=== PATIENT | male | born 1960 | race Caucasian/White ===

== ENCOUNTER 2024-06-16 15:05 | Emergency (ER) | payer MEDICARE, OTHER, SELFPAY ==
[2024-06-16 15:23] VITALS: BP 111/63
--- NOTE | 2024-06-16 16:31 | ED.GENMED ---
History of Present Illness
General
Chief Complaint: Back Pain
Time Seen by Provider: 06/16/24 16:20
History of Present Illness
History of Present Illness:
63-year-old male with no significant past medical history presents to the emergency department for evaluation of sudden onset right flank pain that began while driving today. States the pain is not comparable to past degenerative disc disease
related pain. Had no radiation of symptoms into the legs. The pain was severe at onset involving sweating as well as chills, did not radiate at that time. It is since subsided currently rated 3 out of 10. Did not take any medication prior to
arrival. No history of similar complaint. Denies any fevers, vomiting, dysuria, or hematuria
Review of Systems
Review of Systems
Allergies reviewed?: Yes
All Other Systems: ROS reviewed and negative except as documented in HPI and ROS
Phy Exam
Physical Exam
Physical Exam:
GEN: Well appearing, NAD, WDWN
HEENT: Oral mucosa moist, no scleral icterus
Cardiac: Regular rate
Lung: No respiratory distress, no tachypnea
MSK: No gross deformity or injuries. Tenderness reproduced minimally to the right paraspinous lumbar musculature, there is associated right CVA tenderness, no midline bony spinous process tenderness to the L-spine
Skin: Good color, no pallor or jaundice, no rashes
Neuro: AO x3, moves all extremities freely
Psych: Calm, cooperative
Course
Orders/Labs/Results
Orders:
Orders
06/16/24 16:31
CT Abd/pel Without Iv Or Oral Urgent
Comment:
Reason For Exam: R flank pain
Ibuprofen [Motrin] 600 mg PO NOW STA
06/16/24 17:05
Urinalysis Reflex To Culture Urgent
Date Specimen was Collected: 06/16/24
Time Specimen was Collected: 16:57
Urine Microscopic Reflex Cult Urgent
06/16/24 18:56
Tamsulosin [Flomax] 0.4 mg PO NOW STA
Abnormal Lab Results
06/16/24
17:05
Urine Ketones Trace A
(Negative)
Ur Occult Blood Reflex 2+ A
(Negative)
Leukocyte Esterase Rfl Trace A
(Negative)
Urine RBC 50-60 A /HPF
(0-2)
Urine Bacteria (Reflex) Few A
(Negative)
Vital Signs
Initial and Last Documented VS:
Initial Vital Signs
Temp Pulse Resp BP Pulse Ox
98.6 F 106 18 111/63 100
06/16/24 15:23 06/16/24 15:23 06/16/24 15:23 06/16/24 15:23 06/16/24 15:23
Last Documented Vital Signs
Temp Pulse Resp BP Pulse Ox
98.6 F 102 16 122/72 97
06/16/24 15:23 06/16/24 19:11 06/16/24 19:11 06/16/24 19:11 06/16/24 19:11
MDM/Problems Addressed
MDM/Problems Addressed:
Patient identified to have a 5 mm proximal right ureteral stone. Pain well-controlled after ibuprofen. No fever and urinalysis is bland, do not feel that labs would exchange engineer at this point. Discussed supportive care and return parameters
*Critical Care Note
Total Time (30-74mins, 75-104mins- exclusive of procedures): Not Applicable
ED Attending Note
-
Portions of this chart may have been created with voice recognition software.� Occasional wrong word or��sound alike� substitutions may have occurred due to the inherent limitations of voice recognition software.
Discharge Plan
Departure
Patient Disposition: Home (Routine Discharge)
Date of Disposition: 06/16/24
Time of Disposition: 18:56
Patient with high blood pressure during this ER visit?: No
Discharge Problem:
Ureterolithiasis
Instructions: Kidney Stone, Adult ED
Prescriptions:
New
tamsulosin [Flomax] 0.4 mg capsule
0.4 mg PO HS Qty: 10 0RF
oxycodone-acetaminophen [Percocet] 5-325 mg tablet
1 tab PO Q6HPRN PRN (Reason: pain) Qty: 10 0RF
meloxicam 15 mg tablet
15 mg PO DAILY Qty: 10 0RF
No Action
hydrocodone-acetaminophen 1 TABLET tablet
1 - 2 tab PO Q4HPRN PRN (Reason: moderate to severe pain) Qty: 15 0RF
Referrals:
Sarah Beth Barone DO [Family Provider] -
Tariq Reynoso MD [Active] -
Activity Restrictions/Additional Instructions:
Strain your urine until the stone passes
Take the medications as prescribed; if your pain is not controlled with medications, OR if you develop a fever, return to the ER immediately
If you have not passed the stone within 5 days, follow up with urology
Do not take additional ibuprofen/naproxen with the medication I have prescribed, however you can take Tylenol
Interventions
Interventions:
*Risk Screen - Suicide Last Done: 06/16/24 15:23
*General Assessment Last Done: 06/16/24 15:23
*Neglect/Abuse Screening Last Done: 06/16/24 15:23
ED- Fall Risk Assessment Last Done: 06/16/24 19:15
*ED COVID-19 Vaccine History Last Done: 06/16/24 15:23
*Nursing Disposition Last Done: 06/16/24 19:15
ED-Musculoskeletal Assessment Last Done: 06/16/24 16:12
Discharge Date and Time
Discharge Date/Time: 06/16/24 19:15
Print Language: [id number]
[2024-06-16] MEDS: MOTRIN 600 MG PO (16:54)
[2024-06-16 17:11] LABS: Urine Albumin Trace (Neg - Trace); Urine Bilirubin Negative (Negative); Urine Character Clear (Clear); Urine Color Yellow; Urine Glucose Negative (Negative); Urine Ketone Trace (Negative); Urine Leukocyte Trace (Negative); Urine Nitrite Negative (Negative); Urine Occult Blood 2+ (Negative); Urine Urobilinogen Negative (Neg - 1+)
[2024-06-16 17:17] LABS: Urine Mucus Few; Urine Squamous Cell 0-2 /LPF (Few)
[2024-06-16 17:19] LABS: Urine Bacteria Few (Negative); Urine Red Blood Cell 50-60 /HPF (0-2)
[2024-06-16 17:37] VITALS: BP 115/71
[2024-06-16] MEDS: FLOMAX 0.4 MG PO (19:08)
[2024-06-16 19:11] VITALS: BP 122/72
== END 2024-06-16 19:15 | disposition home or self-care (01) ==
LOC: EMR 15:05
PROVIDERS: Physician Assistant; EMERGENCY PHYSICIAN Emergency Medicine; FAMILY PHYSICIAN Internal Medicine
DX: N20.1 Calculus of ureter (principal); Z88.1 Allergy status to other antibiotic agents
CPT/HCPCS: 99284; 74176; 81003; 81015

== ENCOUNTER → 2024-07-16 15:10 | Outpatient (REF) | payer MEDICARE, OTHER, SELFPAY | LOC: RAD 15:10 | PROVIDERS: ATTENDING PHYSICIAN Specialist; FAMILY PHYSICIAN Internal Medicine | DX: N20.0 Calculus of kidney (principal) | CPT/HCPCS: 74018 ==

== ENCOUNTER 2024-08-28 06:23 | Day surgery (SDC) | payer OTHER, SELFPAY ==
[2024-08-22 07:53] VITALS: BMI 23.4
[2024-08-22 08:51] LABS: % Basophils 0.9 % (0-2); % Eosinophils 3.1 % (0-6); % Immature Granulocytes 0.2 % (0-0.5); % Lymphocytes 27.5 % (20.5-51.1); % Monocytes 12.3 % (1.7-9.3); Absolute Eosinophils 0.1 10^3/uL (0-0.7); Absolute Lymphocytes 1.2 10^3/uL (1.2-3.4); Absolute Monocytes 0.6 10^3/uL (0.1-0.6); Absolute Neutrophils 2.5 10^3/uL (1.4-6.5); Hematocrit 42.7 % (39.0-52.0); Hemoglobin 14.2 g/dL (13.0-18.0); Mean Corp Hgb Conc. 33.3 g/dL (33.0-37.0); Mean Corpuscular Hgb 28.3 pg (27.0-31.0); Mean Corpuscular Volume 85.1 fL (80.0-94.0); Mean Platelet Volume 9.6 fL (7.4-10.4); Nucleated Red Blood Cells % 0 % (-); Platelet Count 244 10^3/uL (130-400); Red Blood Cell Count 5.02 10^6/uL (4.70-6.10); Red Cell Dist. Width 13.7 % (11.5-14.5); Urine Albumin Negative (Neg - Trace); Urine Bilirubin Negative (Negative); Urine Character Clear (Clear); Urine Color Yellow; Urine Glucose Negative (Negative); Urine Ketone Negative (Negative); Urine Leukocyte Negative (Negative); Urine Nitrite Negative (Negative); Urine Occult Blood Negative (Negative); Urine Urobilinogen Negative (Neg - 1+); White Blood Cell Count 4.5 10^3/uL (4.8-10.8)
[2024-08-22 09:27] LABS: Blood Urea Nitrogen 28 mg/dl (9-20); Calcium 9.4 mg/dl (8.4-10.2); Carbon Dioxide 30 mmol/L (22-30); Chloride 101 mmol/L (98-107); Estimated Creatinine Clearance 106 ml/min; Glucose 87 mg/dl (70-99); Potassium 4.1 mmol/L (3.5-5.1); Sodium 142 mmol/L (135-145); eGFR > 60.00
[2024-08-28] VITALS (9 sets, daily range): BP systolic 105–127; BP diastolic 74–91; BMI 23.4
[2024-08-28] MEDS: NORMOSOL-R/PLASMALYTE-A 1000 IV (08:07)
== END 2024-08-28 11:25 | disposition home or self-care (01) ==
LOC: SDS 06:23
PROVIDERS: ATTENDING PHYSICIAN Specialist; FAMILY PHYSICIAN Internal Medicine
DX: N20.0 Calculus of kidney (principal)
CPT/HCPCS: 50590; 36415; 80048; 81003; 85025; 93005; J1580

== ENCOUNTER → 2024-10-29 06:23 | Day surgery (SDC) | payer MEDICARE, OTHER, SELFPAY | LOC: GI 06:23 | PROVIDERS: ATTENDING PHYSICIAN Surgery; FAMILY PHYSICIAN Internal Medicine | DX: Z12.11 Encounter for screening for malignant neoplasm of colon (principal); Z86.0100 Personal history of colon polyps, unspecified; K64.9 Unspecified hemorrhoids | CPT/HCPCS: G0105 ==